=== PATIENT | male | born 1950 | race Caucasian/White ===

== ENCOUNTER 2016-08-28 10:54 | Day surgery (SDC) | payer MEDICARE ==
[2016-08-28] MEDS ORDERED: LIDOCAINE HCL 1% 20 ML VIAL MC ONE (10:55)
[2016-08-28] MEDS ORDERED: PROPOFOL 200 MG/20 ML BOTTLE IV ONE (10:55)
[2016-08-28 11:20] LABS: *BILIRUBIN,URIN NEGATIVE (NEGATIVE); *BLOOD, URINE 1+ (NEGATIVE); *COLOR,URINE YELLOW (YELLOW); *KETONES,URINE NEGATIVE (NEGATIVE); *PROTEIN,URINE NEGATIVE (NEGATIVE); *UROBILINOGEN,URINE 0.2 E.U./dl (NORMAL); LEUKOCYTE ESTERASE ,URINE NEGATIVE (NEGATIVE); NITRITE, URINE NEGATIVE (NEGATIVE); PH,URINE 5.5 (5.0-8.0); UGLUCOSE NEGATIVE (NEGATIVE)
[2016-08-28 11:29] LABS: POTASSIUM 4.2 mmol/L (3.5-5.1)
[2016-08-28 11:30] LABS: BASOPHILS % (AUTO) 0.9 % (0.0-2.0); EOSINOPHILS % (AUTO) 2.4 % (0.0-7.0); HEMATOCRIT 42.2 % (40-50); HEMOGLOBIN 14.6 G/DL (14.0-18.0); LYMPHOCYTES # (AUTO) 2.1 K/UL (0.8-4.8); LYMPHOCYTES % (AUTO) 32.6 % (20.5-51.5); MEAN CORPUSCULAR HEMOGLOBIN 32.5 UUG (27.0-31.0); MEAN CORPUSCULAR HGB CONC 35 g/dL (32.0-37.0); MEAN CORPUSCULAR VOLUME 93.7 FL (82.0-92.0); MONOCYTES % (AUTO) 8.9 % (0.0-11.0); NEUTROPHILS # (AUTO) 3.5 K/UL (1.8-8.9); NEUTROPHILS % (AUTO) 55.2 % (38.5-71.5); PLATELET COUNT (AUTO) 176 K/UL (150-450); WHITE BLOOD COUNT (AUTO) 6.5 K/UL (4.0-11.2)
[2016-08-28 11:31] LABS: BASOPHILS # (AUTO) 0.1 K/uL (0.0-8.0); EOSINOPHILS # (AUTO) 0.2 K/uL (0.0-0.7); MONOCYTES # (AUTO) 0.6 K/UL (0.1-1.30)
[2016-08-28 11:39] LABS: *CLARITY,URINE HAZY (CLEAR)
[2016-08-28 11:40] LABS: BACTERIA,URINE NONE SEEN /HPF (NONE SEEN); SQUAMOUS EPITHELIAL CELL,UR FEW /HPF (NONE SEEN); WBC,URINE 0-3 /HPF (0-3)
[2016-08-28 11:41] LABS: MUCUS,URINE MODERATE /LPF (0-FEW)
== END 2016-08-28 15:00 | disposition home or self-care (01) ==
LOC: DS 10:54 → EDSEX 13:00 → DS 15:00
PROVIDERS: ATTEND Internal Medicine Gastroenterology
DX: Z12.11 Encounter for screening for malignant neoplasm of colon (principal); K57.30 Diverticulosis of large intestine without perforation or abscess without bleeding; M19.90 Unspecified osteoarthritis, unspecified site; I21.3 ST elevation (STEMI) myocardial infarction of unspecified site; I10 Essential (primary) hypertension
CPT/HCPCS: 36415; 71010; 85025; 85730; 93005; A4217; A4663; J3490; J7120